=== PATIENT | male | born 1970 | race Caucasian/White ===

== ENCOUNTER 2022-07-23 21:35 | Emergency (ER) | payer BC ==
[2022-07-23] MEDS: Lactated Ringers 1,000 ML IV ONE (21:47)
[2022-07-23] MEDS: Bacitracin/Neomycin/Polymyxin B Oint 0.9 GM U/D Packet ONE (22:23)
[2022-07-24] MEDS: Bacitracin/Neomycin/Polymyxin B Ophth Oint 3.5 GM Tube EYELF SCH (00:23)
== END 2022-07-23 23:57 | disposition home or self-care (01) ==
LOC: LL.ED 21:35
DX: T20.20XA Burn of second degree of head, face, and neck, unspecified site, initial encounter (principal); T26.42XA Burn of left eye and adnexa, part unspecified, initial encounter; T22.292A Burn of second degree of multiple sites of left shoulder and upper limb, except wrist and hand, initial encounter; X11.0XXA Contact with hot water in bath or tub, initial encounter
CPT/HCPCS: 16020; 96360; 96361; 99283-25; A9270-GY; J7120

== ENCOUNTER → 2022-08-21 | Day surgery (SDC) | payer BC ==
[~2022-08-21] MED LIST: Propofol 200 MG/20 ML SDV ONE
== END ==
LOC: LL.SDS 06:00
PROVIDERS: ATTEND Surgery
DX: Z12.11 Encounter for screening for malignant neoplasm of colon (principal); K57.30 Diverticulosis of large intestine without perforation or abscess without bleeding; K64.8 Other hemorrhoids; Z80.0 Family history of malignant neoplasm of digestive organs